=== PATIENT | male | born 1985 | race Two or more races ===

== ENCOUNTER 2017-01-15 21:25 | Emergency (ER) | payer SELFPAY ==
[~2017-01-15] VITALS: Ht 182.9 cm; Wt 83.0 kg
[2017-01-15 21:34] VITALS: BP 145/89
--- NOTE | 2017-01-15 22:12 | PHYS DOC ---
Past Medical History Past Medical History: No Pertinent History Past Surgical History: No Surgical History Additional Information: occasional smoker Alcohol Use: Occasionally Drug Use: None Adult General Chief Complaint Chief Complaint: SORE THROAT HPI HPI Patient is a 31 year old male who presents with sore throat after swallowing a chicken bone 3 days ago. He is able to eat and drink but has pain with swallowing. He denies difficulty breathing, nausea, or vomiting. He states that he can feel the bone in his throat with his fingers. He does not have a PCP. Review of Systems Review of Systems Constitutional: Denies fever or chills. [] Eyes: Denies change in visual acuity, redness, or eye pain. [] HENT: Denies ear pain, nasal congestion. Reports sore throat. Respiratory: Denies cough or shortness of breath. [] Cardiovascular: Denies chest pain, palpitations or edema. [] GI: Denies abdominal pain, nausea, vomiting, bloody stools or diarrhea. [] Integument: Denies rash or skin lesions. [] Neurologic: Denies headache, focal weakness or sensory changes. [] Allergies Allergies Allergies Coded Allergies Type Severity Reaction Last Updated Verified No Known Drug Allergies 01/15/17 No Physical Exam Physical Exam Constitutional: Well developed, well nourished, no acute distress, non-toxic appearance. [] HENT: Normocephalic, atraumatic, bilateral external ears normal, oropharynx moist, no oral exudates, nose normal. There is no posterior pharyngeal erythema or tonsillar edema. There are no visible foreign objects in the posterior pharynx. The airway is grossly patent. Eyes: PERRLA, EOMI, conjunctiva normal, no discharge. [] Neck: Normal range of motion, no tenderness, supple, no stridor. [] Cardiovascular: Heart rate regular rhythm, no murmur [] Lungs & Thorax: Bilateral breath sounds clear to auscultation without wheezes, rales, or rhonchi. No stridor. Skin: Warm, dry, no erythema, no rash. [] Neurologic: Alert and oriented X 3, normal motor function, normal sensory function, no focal deficits noted. [] Psychologic: Affect normal, judgement normal, mood normal. [] Current Patient Data Vital Signs Vital Signs Date Time Temp Pulse Resp B/P Pulse Ox O2 Delivery O2 Flow Rate FiO2 01/15/17 21:34 98.4 107 18 96 Room Air 98.4 EKG EKG [] Radiology/Procedures Radiology/Procedures Soft tissue x-ray of the neck reviewed and interpreted by myself with Dr. Vargas. There is no radiopaque foreign body. Course & Med Decision Making Course & Med Decision Making Pertinent Labs and Imaging studies reviewed. (See chart for details) [] Dragon Disclaimer Dragon Disclaimer This electronic medical record was generated, in whole or in part, using a voice recognition dictation system. Departure Departure Impression: Primary Impression: Sensation of foreign body in esophagus Disposition: HOME, SELF-CARE Condition: STABLE Referrals: CHRISTA SEPULVEDA MD Patient Instructions: Swallowed Foreign Body, Adult, [id number] Additional Instructions: There was no chicken bone seen on your xray. To help with your throat discomfort, you may mix liquid Benadryl and liquid Maalox in equal parts at home. Swish, gargle, and spit out, or you may swallow it. Please follow up with the GI doctor listed below if your throat continues to be sore. Return to the emergency department if you have difficulty swallowing or breathing, or other new or concerning symptoms. ALIRIO RILEY Jan 15, 2017 22:12
--- NOTE | 2017-01-16 08:19 | RAD ---
Examination: 2 views of the soft tissue neck History: History of chicken bone stuck in the throat Comparison: None available. Findings: There is a subtle vertical sliver of density projecting in the lower pharynx region above the level of the epiglottis could be an artifact or foreign body. This is only seen on the lateral view. Impression: There is a subtle vertical sliver of density projecting in the lower pharynx region above the level of the epiglottis could be an artifact or foreign body. This is only seen on the lateral view. ED physician informed at time of dictation.
--- NOTE | 2017-01-20 09:26 | VNOTE ---
CALL BACK NOTE CALL BACK Radiology over read of the soft tissue neck x-ray determined that there was a foreign body in the lower pharynx. Lisa RN who speaks Malay, called the patient to inform him of the results. The patient was instructed to follow-up with Dr. Nguyen with ENT. ALIRIO RILEY Jan 20, 2017 09:26
== END 2017-01-15 23:20 | disposition home or self-care (01) ==
LOC: ER 21:25
DX: R09.89 Other specified symptoms and signs involving the circulatory and respiratory systems (principal); F17.200 Nicotine dependence, unspecified, uncomplicated; X58.XXXA Exposure to other specified factors, initial encounter; Y93.89 Activity, other specified; Y92.89 Other specified places as the place of occurrence of the external cause; Y99.8 Other external cause status
CPT/HCPCS: 70360; 99284